=== PATIENT | female | born 1995 | race Caucasian/White ===

== ENCOUNTER 2021-05-28 18:17 | Emergency (ER) | payer SELFPAY ==
[~2021-05-28] VITALS: Ht 170.2 cm; Wt 113.4 kg
[2021-05-28 18:24] VITALS: BP 155/74
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
--- NOTE | 2021-05-28 19:03 | NUR ---
ELOIES DOUGLASS CALLED AND SPOKE WITH [employer] [id number] AND FILED POLICE REPORT. CLOTH PAINTER WILL COME OUT TO SPEAK WITH PATIENT AND OBTAIN STATEMENT. PT MADE AWARE
--- NOTE | 2021-05-28 19:13 | NUR ---
Pt report given to TERRY GREEN. Transfer of care at this time.
--- NOTE | 2021-05-28 19:37 | NUR ---
pt is awake and alert x4. pt is in stable condition. pt provided with phone per request. all needs met at this time. pt states she feels better.
[2021-05-28] MEDS ORDERED: IBUP-2213 PO (19:52)
[2021-05-28 20:09] VITALS: BP 155/74
--- NOTE | 2021-05-28 20:09 | NUR ---
Mark kern in EDM - 05/28/21 at 2009 by MED PATIENT ELOPED FROM FACILITY. DISCHARGE INSTRUCTIONS NOT GIVEN TO PATIENT. DR. hill NOTIFIED.
--- NOTE | 2021-05-28 20:09 | NUR ---
Patient discharged with v/s stable. Written and verbal after care instructions given and explained. Patient verbalized understanding. Ambulatory with steady gait. All questions addressed prior to discharge. Advised to follow up with PMD. PT LEFT WITHOUT D/C PAPERWORK.
== END 2021-05-28 20:09 | disposition home or self-care (01) ==
LOC: MED 18:17
DX: L24.9 Irritant contact dermatitis, unspecified cause (principal); R03.0 Elevated blood-pressure reading, without diagnosis of hypertension; Y04.8XXA Assault by other bodily force, initial encounter; Y93.89 Activity, other specified; Y92.89 Other specified places as the place of occurrence of the external cause; Y99.8 Other external cause status
CPT/HCPCS: 99282